=== PATIENT | male | born 1970 | race Caucasian/White ===

== ENCOUNTER 2019-09-15 08:32 | Outpatient (CLI) | payer MEDICAID ==
[~2019-09-15] VITALS: Ht 175.3 cm; Wt 83.0 kg
[2019-09-15] MEDS ORDERED: BUPROPION XL150 MG ORAL (10:10)
[2019-09-15] MEDS ORDERED: OMEPRAZOLE20 M2 ORAL (10:10)
[2019-09-15 10:11] VITALS: BP 127/89
--- NOTE | 2019-09-15 14:15 | Consultation ---
DATE OF CONSULTATION: 09/15/2019 CONSULTING PHYSICIAN: Ruslan Reyes M.D. CHIEF COMPLAINT: Referral for screening colonoscopy. PAST MEDICAL HISTORY: 1. Depression. 2. History of alcohol abuse. 3. Left testicular cancer. 4. History of gastric ulcer perforation requiring surgery in 2008. PAST SURGICAL HISTORY: 1. Testicular cancer surgery. 2. Gastric surgery. MEDICATIONS: Omeprazole and bupropion. FAMILY HISTORY: No family history of GI malignancies. SOCIAL HISTORY: The patient had a remote history of alcohol, quit about 8 years ago. Denies any tobacco or drug use. ALLERGIES: No known drug allergy. REVIEW OF SYSTEMS: Positive for GERD. PHYSICAL EXAMINATION: VITAL SIGNS: Temperature 97.8, blood pressure 127/89, pulse 69, respirations 20. HEENT: Normocephalic, atraumatic. Sclerae anicteric. NECK: Supple. No evidence of obvious lymphadenopathy. CARDIOVASCULAR: Regular rate and rhythm. Plus S1-S2. LUNGS: Clear to auscultation bilaterally. ABDOMEN: Positive bowel sounds. Soft and nontender. No rebound. No guarding. No peritoneal sign. EXTREMITIES: No cyanosis, no clubbing, no edema. ASSESSMENT AND PLAN: The patient is a 49-year-old male referred for screening colonoscopy. The patient was given the risks and benefits of procedure. The procedure was explained to him in detail. He was given the prep instruction. The patient agreed. We will plan to schedule when the authorization is obtained. Ruslan Reyes M.D. DR: ALEX JOB#: [id number] CC:
== END 2019-09-15 10:32 | disposition home or self-care (01) ==
LOC: PAN 08:32
DX: K21.9 Gastro-esophageal reflux disease without esophagitis (principal); F32.9 Major depressive disorder, single episode, unspecified; Z85.47 Personal history of malignant neoplasm of testis
CPT/HCPCS: G0463